=== PATIENT | male | born 1945 | race Asian ===

== ENCOUNTER 2025-09-01 14:57 | Inpatient (IN) ==
--- NOTE | 2025-09-01 15:27 | Emergency Department Note ---
Impression & Plan CHF (congestive heart failure), Elevated troponin I level, Abnormal EKG, Acute hyperkalemia, Acute hyponatremia, DAVID (acute kidney injury), Thrombocytopenia ED Provider Note NAME: NIKKIE BAILEY AGE: 80 SEX: M : 1945 ARRIVES VIA: Walk-In INFORMANT: Patient, the patient's family member ED PROVIDER(S): Marshall Osborne DO CHIEF COMPLAINT: Shortness of breath HPI: The patient is an 80-year-old male who presented to the emergency department for an evaluation of difficulty breathing. The patient's had problems breathing over the course of the last several days. He was seen by cardiology and had outpatient laboratory radiographic studies ordered. He was found to have signs of volume overload on chest x-ray. 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 The patient denies having any chest pain. He denies having any leg swelling or cough. He denies having any recent fever or illness. ROS: See above HPI for pertinent positives & negatives. A total of 10 systems reviewed and were otherwise negative. PAST MEDICAL HISTORY: See Below PAST SURGICAL HISTORY: See Below FAMILY HISTORY: See Below SOCIAL HISTORY: See Below HOME MEDICATIONS: See Below ALLERGIES: See Below VITALS: See Below PHYSICAL EXAMINATION: GENERAL: Patient is awake alert in no acute distress patient is resting comfortably and showing no signs of anxiety EYES: The conjunctivae are clear. The pupils are round and reactive. EARS, NOSE, MOUTH AND THROAT: The nose is without any evidence of any deformity. NECK: The neck is nontender and supple. RESPIRATORY: Diminished breath sounds are noted at both lung bases. There were rales throughout. CARDIOVASCULAR: Regular rate and rhythm noted there no murmurs rubs or gallops normal S1 normal S2. GASTROINTESTINAL: The abdomen is soft. Abdomen is nontender. MUSCULOSKELETAL/EXTREMITIES: There is no evidence of gross deformity full range of motion is noted in the hips and shoulders. SKIN: There is no obvious evidence of any rash. There are no petechiae, pallor or cyanosis noted. NEUROLOGIC: Patient is awake alert and oriented x3 MEDICAL DECISION MAKING: The patient is a 80-year-old male who has a history of CHF who is sent to the emergency department because of weight gain and abnormal labs. The patient had vital signs were reassuring. For this reason further laboratory and radiographic studies were obtained prior to any therapeutic interventions. I discussed the patient's laboratory and radiographic studies with him and his son. The patient was found to have hyponatremia as well as an elevated potassium. He also had an elevated creatinine compared to his baseline. The patient may have volume overload but the chest x-ray was also consistent with possible infiltrate. I discussed the patient's condition with the on-call [facility] hospitalist. I will defer further treatment to their judgment. The patient did not have a cough or fever. Triage Nursing notes reviewed. Prior medical records reviewed Vital Signs: reviewed and remarkable for no significant abnormalities Differential diagnosis: Reactive airway disease, pneumonia, pneumothorax, COPD, CHF, infections, cardiac ischemia, pulmonary embolism, musculoskeletal, gastrointestinal, as well as other pathologies. ER treatment provided: See below Diagnostics interpreted by me: ECG: EKG was obtained in the emergency department. My interpretation is sinus rhythm at 87 bpm. First-degree AV block is noted. LVH was noted by voltage criteria with ST and T wave abnormalities noted in the lateral leads. This was compared to a tracing from March 16, 2025. Some of the changes in the lateral leads are more pronounced otherwise no changes were noted. Cardiac Monitoring: An order was placed for continuous cardiac monitoring. The monitor shows a rate of 88 bpm with sinus rhythm. Laboratory studies: As stated above and show below. Imaging studies: See below. Radiographic imaging was reviewed by myself Consultation(s): I discussed this case with Dr. Elkins who is on for the [facility]. Past Med/Surg History Problem List (Updated 09/01/25 @ 17:03 by Marshall Osborne DO) Thrombocytopenia (Acute) DAVID (acute kidney injury) (Acute) Acute hyponatremia (Acute) Acute hyperkalemia (Acute) Abnormal EKG (Acute) Elevated troponin I level (Acute) CHF (congestive heart failure) (Acute) Dyspnea on exertion Fatigue Heart failure with improved ejection fraction (HFimpEF) Ascites Anemia Pleural effusion Depression BPH (benign prostatic hyperplasia) Hepatic congestion Hyperkalemia Dilated aortic root Mitral regurgitation Pulmonary hypertension RVSP March Cardiomyopathy Cerumen impaction Irregular heart beat Wellness examination Elevated PSA Tremor Health care maintenance Medical History Pericardial effusion Acute HFrEF (heart failure with reduced ejection fraction) Hypertensive emergency Acute respiratory failure with hypoxia Hypertension Constipation Hyponatremia Elevated troponin Renal stone Surgical History Status post Mohs surgery Family History Father Heart disease Hypertension Brother Heart disease Hypertension Denies family history of Ovarian cancer Prostate cancer Diabetes Kidney disease Myocardial infarction Breast cancer Lung cancer Colorectal cancer Stroke Social History Smoking Status: Never smoker Second Hand Exposure: No; Do You Dip or Chew Tobacco: No; Hx Alcohol Use: No Hx Substance Use: No Preferred Language: Maori Communication Ability: Effective Hearing Ability: Use of Hearing Aid Clinical Recruiter Required: No Beliefs That Will Affect Care: None Current Living Situation: Family Current Living Situation Comment: lives with son current occupational status: retired Feels Safe at Home: Yes Seatbelt Use: always Assistive Devices: None Allergies Allergies Allergy/AdvReac Type Severity Reaction Status Date / Time No Known Allergies Allergy Verified 07/01/25 08:49 Home Meds Home Medications Medication Instructions Recorded Confirmed multivitamin 1 tab PO DAILY 09/01/25 09/01/25 Previous Rx's Medication Instructions Recorded dutasteride 0.5 mg capsule 0.5 mg PO DAILY #90 caps 06/17/24 rosuvastatin 10 mg tablet (Crestor) 10 mg PO DAILY #90 tabs 03/18/25 empagliflozin 10 mg tablet 10 mg PO DAILY #90 tabs 04/13/25 (Jardiance) metoprolol succinate 25 mg 25 mg PO QAM 30 days #90 tabs 04/13/25 tablet,extended release 24 hr sacubitril 24 mg-valsartan 26 mg 1 tab PO BID 30 days #180 tabs 04/13/25 tablet (Entresto) docusate sodium 100 mg capsule 100 mg PO BID 90 days #180 caps 04/15/25 tamsulosin 0.4 mg capsule 0.4 mg PO DAILY 90 days #90 caps 04/22/25 furosemide 20 mg tablet 20 mg PO DAILY PRN weight gain, 06/18/25 swelling, SOb #90 tabs pneumo 21-corrie conj-dip crm(PF) 0.5 0.5 ml IM ONCE #0.5 mL 06/22/25 mL IM syringe (Capvaxive) amitriptyline 25 mg tablet 25 mg PO DAILY #90 tabs 07/16/25 linaclotide 145 mcg capsule 145 mcg PO DAILY #30 caps 08/31/25 (Linzess) Results & Data (ED) Vital Signs Vital Signs - 24 hr 09/01/25 14:58 09/01/25 15:08 09/01/25 15:14 Temperature 36.2 C L Temperature Source Temporal Artery Scan Pulse Rate 62 88 Pulse Rate [Apical] Respiratory Rate 17 Respiratory Effort / Characteristics Spontaneous Non-Labored Spontaneous SOB on Exertion Respiratory Depth Normal Respiratory Pattern Regular Blood Pressure 115/63 Blood Pressure [Right Arm] Blood Pressure Mean 80 Blood Pressure Mean [Right Arm] Blood Pressure Position [Right Arm] Pulse Oximetry 97 Oxygen Delivery Method Room Air Room Air Sepsis Recent Fever Within 48 Hours No Sepsis New/Unexplained Change in Mental Status N/A Sepsis Action Taken by Nursing No Action Required 09/01/25 15:14 09/01/25 15:14 09/01/25 15:14 Temperature Temperature Source Pulse Rate 84 Pulse Rate [Apical] 91 H Respiratory Rate 20 17 Respiratory Effort / Characteristics Non-Labored Spontaneous Respiratory Depth Normal Respiratory Pattern Regular Blood Pressure Blood Pressure [Right Arm] 137/87 Blood Pressure Mean Blood Pressure Mean [Right Arm] 103 Blood Pressure Position [Right Arm] Semi-fowlers Pulse Oximetry 92 Oxygen Delivery Method Room Air Room Air Room Air Sepsis Recent Fever Within 48 Hours Sepsis New/Unexplained Change in Mental Status Sepsis Action Taken by Nursing 09/01/25 16:30 Temperature Temperature Source Pulse Rate Pulse Rate [Apical] 83 Respiratory Rate 20 Respiratory Effort / Characteristics Non-Labored Spontaneous Respiratory Depth Normal Respiratory Pattern Regular Blood Pressure Blood Pressure [Right Arm] 138/92 Blood Pressure Mean Blood Pressure Mean [Right Arm] 107 Blood Pressure Position [Right Arm] Semi-fowlers Pulse Oximetry 99 Oxygen Delivery Method Room Air Sepsis Recent Fever Within 48 Hours Sepsis New/Unexplained Change in Mental Status Sepsis Action Taken by Intermediate Medications Current Medication List: was personally reviewed by me Laboratory Data Attestation: I reviewed the patient's lab results. 09/01/25 15:35 09/01/25 17:49 Lab Results 09/01/25 09/01/25 Range/Units 15:35 16:04 WBC 2.31 L (4.8-10.8) K/ul RBC 4.09 L (4.70-6.10) M/uL Hgb 11.7 L (14.0-18.0) g/dL Hct 34.7 L (42.0-52.0) % MCV 84.8 (80.0-100.0) fL MCH 28.6 (25.0-34.0) pg MCHC 33.7 (32.0-36.0) g/dL RDW Std Deviation 49.1 H (36.4-46.3) fL RDW Coeff of Benita 15.9 H (11.5-14.5) % Plt Count 90 L (130-400) K/uL MPV 11.8 (9.4-12.4) fL Immature Gran % (Auto) 0.4 % Neut % (Auto) 74.9 % Lymph % (Auto) 16.0 % [place] % (Auto) 8.7 % Eos % (Auto) 0.0 % Baso % (Auto) 0.0 % Neut # (Auto) 1.73 (1.40-6.50) K/uL Lymph # (Auto) 0.37 L (1.20-3.40) K/uL [place] # (Auto) 0.20 (0.11-0.59) K/uL Eos # (Auto) 0.00 (0.00-0.50) K/uL Baso # (Auto) 0.00 (0.00-0.20) K/uL Immature Gran # (Auto) 0.01 (0.01-0.20) K/uL PT Cancelled INR Cancelled APTT Cancelled PTT Ratio Cancelled VBG pH 7.22 L (7.36-7.41) VBG pCO2 49 (38-50) mmHg VBG pO2 30 mmHg VBG HCO3 20 mmol/L VBG O2 Saturation < 60.0 % VBG Base Excess -7.6 mEq/L Sodium 117 L* (136-145) mmol/L Potassium 5.9 H (3.5-5.1) mmol/L Chloride 87 L (98-107) mmol/L Carbon Dioxide 15 L (21-32) mmol/L Anion Gap 15 H (3-11) BUN 48 H (6-23) mg/dl Creatinine 1.41 H (0.6-1.4) mg/dl Est Cr Clr Drug Dosing 29.1 ml/min eGFR 49.75 BUN/Creatinine Ratio 34.0 H (10-20) Glucose 89 (70-99(Fasting)) mg/dl Osmolality 266 L (280-300) mOsm/kg Lactate 4.6 H* (0.4-2.0) mmol/L Calcium 9.0 (8.6-10.3) mg/dl Magnesium 2.6 H (1.7-2.4) mg/dl Total Bilirubin 1.0 (0.2-1.0) mg/dl AST 247 H (13-39) U/L ALT 153 H (7-52) U/L Alkaline Phosphatase 64 (34-104) U/L Troponin I High Sens 80.7 H* (0-20) pg/ml C-Reactive Protein 1.42 H (0-0.5) mg/dl B-Natriuretic Peptide > 4700 H (0-100) pg/ml Total Protein 6.3 (6.0-8.3) gm/dl Albumin 3.6 (3.4-5.0) gm/dl Globulin 2.7 (2.5-4.0) gm/dl Albumin/Globulin Ratio 1.3 (0.9-2) Procalcitonin 0.13 (0-0.5) ng/ml SARS-CoV-2 (PCR) NEGATIVE (Negative) Influenza Type A (PCR) Negative (Neg) Influenza Type B (PCR) Negative (Neg) RSV (RT-PCR) Negative (Neg) Administered Medications Azithromycin (Azithromycin 250 Mg Tab) [facility] [place] [place] Stop: 09/06/25 17:59 Last Admin: 09/01/25 18:36 Dose: 250 mg Documented By: ALEXANDRA Furosemide (Furosemide Inj 20 Mg/2 Ml Vial) 20 mg IV DAILY [facility] Stop: 10/01/25 17:44 Last Admin: 09/01/25 18:34 Dose: 20 mg Documented By: ALEXANDRA Imaging Data Attestation: I personally reviewed and interpreted this imaging study as follows: My Impression: 1 view chest x-ray was obtained in the emergency department. My interpretation is cardiomegaly with volume overload, right greater than left, final report below. Radiologist's Impression: Chest X-Ray 09/01/25 15:04 XR chest 1V portable HISTORY: 80 years-old Male Dyspnea COMPARISON: Chest radiograph same day at 8:25 AM TECHNIQUE: AP view of the chest FINDINGS: Cardiomegaly with atherosclerosis of the aorta. No pneumothorax. Pulmonary vascular congestion with interstitial coarsening, slightly progressed. Small pleural effusions with bibasilar consolidation, right greater than left. Mildly progressed right basilar opacities. Mild right hemidiaphragmatic elevation. Degenerative changes of the shoulders and spine. IMPRESSION: 1. Cardiomegaly with slightly worsening interstitial pulmonary edema and persistent small pleural effusions. 2. Bibasilar opacities have progressed within the right lung base favoring atelectasis, however as previously mentioned superimposed pneumonia would be difficult to exclude. ACT 112: Negative or not required by law. The above report was generated using voice recognition software. It may contain grammatical, syntax or spelling errors. Electronically signed by: Candido Sigala M.D. 09/01/2025 3:33 PM Discharge Plan Visit Data Chief Complaint: Shortness of Breath/Dyspnea Stated Complaint: SHORTNESS OF BREATH ED Provider: Marshall Osborne Discharge Problem: CHF (congestive heart failure), Elevated troponin I level, Abnormal EKG, Acute hyperkalemia, Acute hyponatremia, DAVID (acute kidney injury), Thrombocytopenia Patient Disposition: Admitted As Inpatient Condition: Fair Discharge Instructions Interventions: ED Discharge Assessment Last Done: 09/01/25 18:53
--- NOTE | 2025-09-01 15:34 | XRay Report ---
XR chest 1V portable HISTORY: 80 years-old Male Dyspnea COMPARISON: Chest radiograph same day at 8:25 AM TECHNIQUE: AP view of the chest FINDINGS: Cardiomegaly with atherosclerosis of the aorta. No pneumothorax. Pulmonary vascular congestion with i nterstitial coarsening, slightly progressed. Small pleural effusions with bibasilar consolidation, ri ght greater than left. Mildly progressed right basilar opacities. Mild right hemidiaphragmatic elevat ion. Degenerative changes of the shoulders and spine. IMPRESSION: 1. Cardiomegaly with slightly worsening interstitial pulmonary edema and persistent small pleural eff usions. 2. Bibasilar opacities have progressed within the right lung base favoring atelectasis, however as pr eviously mentioned superimposed pneumonia would be difficult to exclude. ACT 112: Negative or not required by law. The above report was generated using voice recognition software. It may contain grammatical, syntax o r spelling errors. Electronically signed by: Candido Sigala M.D. 09/01/2025 3:33 PM
[2025-09-01 15:48] LABS: Base Excess VBG -7.6 mEq/L; HCO3 VBG 20 mmol/L; Oxygen Saturation VBG < 60.0 %; PCO2 VBG 49 mmHg (38-50); PO2 VBG 30 mmHg; pH VBG 7.22 (7.36-7.41)
--- NOTE | 2025-09-01 15:53 | Electrocardiogram Report ---
Test Reason : Blood Pressure : */* mmHG Vent. Rate : 87 BPM Atrial Rate : 87 BPM P-R Int : 240 ms QRS Dur : 120 ms QT Int : 406 ms P-R-T Axes : * -41 91 degrees QTcB Int : 488 ms Sinus rhythm with 1st degree A-V block Left axis deviation Minimal voltage criteria for LVH, may be normal variant Septal infarct , age undetermined T wave abnormality, consider lateral ischemia Abnormal ECG When compared with ECG of 16-Mar-2025 11:23, Significant changes have occurred Confirmed by Marshall Tee ([id number]) on 09/01/2025 3:53:18 PM Referred By: Confirmed By: Marshall Tee
[2025-09-01 15:56] LABS: Hematocrit (blood only) 34.7 % (42.0-52.0); Hemoglobin 11.7 g/dL (14.0-18.0); Immature Granulocytes # (auto) 0.01 K/uL (0.01-0.20); Immature Granulocytes % (auto) 0.4 %; Mean Corpuscular Hemoglobin 28.6 pg (25.0-34.0); Mean Corpuscular Volume 84.8 fL (80.0-100.0); Platelet Count 90 K/uL (130-400); RDW Standard Deviation 49.1 fL (36.4-46.3); Red Blood Count 4.09 M/uL (4.70-6.10); White Blood Count 2.31 K/ul (4.8-10.8)
[2025-09-01 16:26] LABS: Influenza A virus by PCR Negative (Neg); Influenza B virus by PCR Negative (Neg); SARS CoV2 RNA(COVID-19) Ceph NEGATIVE (Negative)
[2025-09-01 16:43] LABS: Albumin Level 3.6 gm/dl (3.4-5.0); Anion Gap 15.0 (3-11); Bilirubin,Total 1.0 mg/dl (0.2-1.0); Calcium 9.0 mg/dl (8.6-10.3); Carbon Dioxide 15.0 mmol/L (21-32); Chloride 87.0 mmol/L (98-107); Magnesium 2.6 mg/dl (1.7-2.4); Potassium 5.9 mmol/L (3.5-5.1); Sodium 117.0 mmol/L (136-145)
[2025-09-01 16:45] LABS: Alanine Aminotransferase 153.0 U/L (7-52); Albumin Globulin Ratio 1.3 (0.9-2); Alkaline Phosphatase 64.0 U/L (34-104); Blood Urea Nitrogen 48.0 mg/dl (6-23); Creatinine Clr Calc Pharmacy 29.1 ml/min; Globulin 2.7 gm/dl (2.5-4.0); Glucose 89.0 mg/dl (70-99(Fasting)); Total Protein 6.3 gm/dl (6.0-8.3)
--- NOTE | 2025-09-01 17:29 | History & Physical Report ---
Date of Service September 01, 2025 Assessment & Plan (1) CHF (congestive heart failure): (2) Dyspnea on exertion: (3) Fatigue: (4) Thrombocytopenia: (5) DAVID (acute kidney injury): (6) Acute hyponatremia: (7) Elevated troponin I level: (8) Abnormal EKG: (9) Acute hyperkalemia: Plan Acute on chronic CHF exacerbation CHF protocol orders Continue home medications IV Lasix 20 daily initially as clinically seems to be in mild exacerbation At this time And reassess with repeat sodiums and renal function BNP and TFTs pending Echocardiogram Cardiology consultation (sent in by box gluer) Type II MA in setting of CHF and possible infection EKG nonspecific change Trend troponins until flattened Questionable pneumonia Clinically low suspicion however elevated lactate, leukopenia, acidosis on blood gas raise concern Empirical IV Rocephin azithromycin Check sputum if expectorate Blood cultures NTD Viral respiratory panel Pending Procalcitonin and CRP Monitor leukopenia Anion gap acidosis secondary to infection? Trend lactate Repeat VBG Monitor acidosis Severe asymptomatic hyponatremia, CHF likely contributing Management as above Neurochecks BMP every 4 hours. Avoid overcorrection. If progresses further or becomes symptomatic, Will need hypertonic saline and MICU monitoring Urine studies TFTs, cortisol Nephrology consultation Thrombocytopenia in setting of infection? Monitor. Held off on heparin prophylaxis until this improves DAVID suspect cardiorenal Avoid nephrotoxic meds As above UA and renal US Hyperkalemia suspect in setting of renal insufficiency Lokelma Monitor Transaminitis Suspect congestive in setting of CHF Avoid hepatotoxic meds and monitor Hepatitis panel Liver ultrasound DVT prophylaxis and ambulation with assistance. Add chemoprophylaxis once platelets greater than 100 Full code Disposition admission anticipate at least 48 hours hospitalization. Low threshhold for MICU montioring History of Present Illness Chief Complaint: dyspnea Primary Care Provider: Maya Lind MD 80-year-old male Extensive past medical history CHF diagnosed this past March, Depression BPH pulmonary hypertension tremor Hypertension constipation as well as history listed below who presents with Dyspnea Orthopnea and decreased urine output over the past week. He is prescribed Lasix as needed and recently has not been taking it. He was supposed to see his box gluer today however was redirected to ED for admission for further workup considering worsening dyspnea. No chest pain notable lower extremity swelling nausea lightheadedness fevers chills cough or any other symptoms. No recent illness. Awaiting for home med rec to be completed for resumption of home meds son at bedside. We had an extensive pleasant discussion regarding all aspects of care he was very appreciative. He tells me the patient had similar lab findings when previously admitted for CHF. Son confirms patient is at baseline mentation no confusion or other neurological symptoms Allergies Allergy/AdvReac Type Severity Reaction Status Date / Time No Known Allergies Allergy Verified 07/01/25 08:49 Home Medications Medication Instructions Recorded Confirmed Type dutasteride 0.5 mg capsule 0.5 mg PO DAILY #90 caps 06/17/24 09/01/25 Rx rosuvastatin 10 mg tablet (Crestor) 10 mg PO DAILY #90 tabs 03/18/25 09/01/25 Rx empagliflozin 10 mg tablet 10 mg PO DAILY #90 tabs 04/13/25 09/01/25 Rx (Jardiance) metoprolol succinate 25 mg 25 mg PO QAM 30 days #90 tabs 04/13/25 09/01/25 Rx tablet,extended release 24 hr sacubitril 24 mg-valsartan 26 mg 1 tab PO BID 30 days #180 tabs 04/13/25 09/01/25 Rx tablet (Entresto) docusate sodium 100 mg capsule 100 mg PO BID 90 days #180 caps 04/15/25 09/01/25 Rx tamsulosin 0.4 mg capsule 0.4 mg PO DAILY 90 days #90 caps 04/22/25 09/01/25 Rx furosemide 20 mg tablet 20 mg PO DAILY PRN weight gain, 06/18/25 09/01/25 Rx swelling, SOb #90 tabs pneumo 21-corrie conj-dip crm(PF) 0.5 0.5 ml IM ONCE #0.5 mL 06/22/25 09/01/25 Rx mL IM syringe (Capvaxive) amitriptyline 25 mg tablet 25 mg PO DAILY #90 tabs 07/16/25 09/01/25 Rx linaclotide 145 mcg capsule 145 mcg PO DAILY #30 caps 08/31/25 09/01/25 Rx (Linzess) multivitamin 1 tab PO DAILY 09/01/25 09/01/25 History Past Med/Surg History Problem List (Updated 09/01/25 @ 17:03 by Marshall Osborne DO) Thrombocytopenia (Acute) DAVID (acute kidney injury) (Acute) Acute hyponatremia (Acute) Acute hyperkalemia (Acute) Abnormal EKG (Acute) Elevated troponin I level (Acute) CHF (congestive heart failure) (Acute) Dyspnea on exertion Fatigue Heart failure with improved ejection fraction (HFimpEF) Ascites Anemia Pleural effusion Depression BPH (benign prostatic hyperplasia) Hepatic congestion Hyperkalemia Dilated aortic root Mitral regurgitation Pulmonary hypertension RVSP March Cardiomyopathy Cerumen impaction Irregular heart beat Wellness examination Elevated PSA Tremor Health care maintenance Medical History Pericardial effusion Acute HFrEF (heart failure with reduced ejection fraction) Hypertensive emergency Acute respiratory failure with hypoxia Hypertension Constipation Hyponatremia Elevated troponin Renal stone Surgical History Status post Mohs surgery Family History Father Heart disease Hypertension Brother Heart disease Hypertension Denies family history of Ovarian cancer Prostate cancer Diabetes Kidney disease Myocardial infarction Breast cancer Lung cancer Colorectal cancer Stroke Social History Smoking Status: Never smoker Second Hand Exposure: No; Do You Dip or Chew Tobacco: No; Hx Alcohol Use: No Hx Substance Use: No Preferred Language: Turkish Communication Ability: Effective Hearing Ability: Use of Hearing Aid Mangle Roller Required: No Beliefs That Will Affect Care: None Current Living Situation: Family Current Living Situation Comment: lives with son current occupational status: retired Feels Safe at Home: Yes Seatbelt Use: always Assistive Devices: None Review of Systems Review of Systems: negative except as in hpi Physical Exam Physical Exam: GENERAL: Patient is awake alert in no acute distress patient is resting comfortably and showing no signs of anxiety EYES: The conjunctivae are clear. The pupils are round and reactive. EARS, NOSE, MOUTH AND THROAT: The nose is without any evidence of any deformity. NECK: The neck is nontender and supple. RESPIRATORY: Diminished breath sounds are noted at both lung bases. There were rales throughout. CARDIOVASCULAR: Regular rate and rhythm noted there no murmurs rubs or gallops normal S1 normal S2. GASTROINTESTINAL: The abdomen is soft. Abdomen is nontender. MUSCULOSKELETAL/EXTREMITIES: There is no evidence of gross deformity full range of motion is noted in the hips and shoulders. SKIN: There is no obvious evidence of any rash. There are no petechiae, pallor or cyanosis noted. trace edema of feet. NEUROLOGIC: Patient is awake alert and oriented x3 Results & Data Results & Data Vital Signs (Past 12 Hours) Vital Signs Temp Pulse Pulse Resp BP BP Pulse Ox 09/01/25 16:30 83 20 138/92 99 09/01/25 15:14 84 17 92 09/01/25 15:14 91 H 20 137/87 09/01/25 15:14 09/01/25 15:14 09/01/25 15:08 88 09/01/25 14:58 36.2 C L 62 17 115/63 97 O2 Del Method 09/01/25 16:30 Room Air 09/01/25 15:14 Room Air 09/01/25 15:14 Room Air 09/01/25 15:14 Room Air 09/01/25 15:14 Room Air 09/01/25 15:08 09/01/25 14:58 Room Air PG Care Time/CCT Total # of Minutes Spent Total Time Spent with Patient: Total time spent is greater than 50% in coordination of care (as documented) at patient's floor/unit and/or counseling patient: Coding Level of Care Code 56101 INT INP/OBS CARE 2/55MIN Diagnoses CHF (congestive heart failure) I50.9 Dyspnea on exertion R06.09 Fatigue R53.83 Thrombocytopenia D69.6 DAVID (acute kidney injury) N17.9 Acute hyponatremia E87.1 Elevated troponin I level R79.89 Abnormal EKG R94.31 Acute hyperkalemia E87.5
[2025-09-01] MEDS: FUROSEMIDE INJ 20 MG/2 ML VIAL IV SCH (18:34)
[2025-09-01] MEDS: AZITHROMYCIN 250 MG TAB PO SCH (18:36)
[2025-09-01 18:39] LABS: Anion Gap 13.0 (3-11); Blood Urea Nitrogen 50.0 mg/dl (6-23); Calcium 8.9 mg/dl (8.6-10.3); Carbon Dioxide 20.0 mmol/L (21-32); Chloride 87.0 mmol/L (98-107); Creatinine Clr Calc Pharmacy 27.9 ml/min; Glucose 90.0 mg/dl (70-99(Fasting)); INR 1.6 (0.9-1.1); Partial Thromboplastin Time 33 Seconds (21-31); Potassium 6.1 mmol/L (3.5-5.1); Prothrombin Time 16.1 Seconds (9.0-12.0); Sodium 120.0 mmol/L (136-145)
[2025-09-01] MEDS ORDERED: MAGNESIUM HYDROXIDE SUSP 30 ML UDC PO PRN (19:16)
[2025-09-01] MEDS ORDERED: MELATONIN 3 MG TAB PO PRN (19:16)
[2025-09-01] MEDS ORDERED: ONDANSETRON INJ 2 MG/ML 2 ML VIAL IV PRN (19:16)
[2025-09-01] MEDS: cefTRIAXone SODIUM 1,000 MG/50 ML BAG IV SCH (19:59)
[2025-09-01] MEDS: DOCUSATE SODIUM 100 MG CAP PO SCH (20:01)
[2025-09-01 20:03] LABS: Base Excess VBG -6.2 mEq/L; HCO3 VBG 20 mmol/L; Oxygen Saturation VBG < 60.0 %; PCO2 VBG 39 mmHg (38-50); PO2 VBG 20 mmHg; pH VBG 7.31 (7.36-7.41)
[2025-09-01 20:08] LABS: Hematocrit (blood only) 32.3 % (42.0-52.0); Hemoglobin 11.2 g/dL (14.0-18.0); Mean Corpuscular Hemoglobin 28.9 pg (25.0-34.0); Mean Corpuscular Volume 83.5 fL (80.0-100.0); Platelet Count 84 K/uL (130-400); RDW Standard Deviation 47.9 fL (36.4-46.3); Red Blood Count 3.87 M/uL (4.70-6.10); White Blood Count 2.42 K/ul (4.8-10.8)
[2025-09-01 20:52] LABS: Alanine Aminotransferase 243.0 U/L (7-52); Albumin Globulin Ratio 1.4 (0.9-2); Albumin Level 3.6 gm/dl (3.4-5.0); Alkaline Phosphatase 65.0 U/L (34-104); Anion Gap 13.0 (3-11); Bilirubin,Total 1.1 mg/dl (0.2-1.0); Blood Urea Nitrogen 51.0 mg/dl (6-23); Calcium 9.1 mg/dl (8.6-10.3); Carbon Dioxide 19.0 mmol/L (21-32); Chloride 86.0 mmol/L (98-107); Creatinine Clr Calc Pharmacy 26.9 ml/min; Globulin 2.6 gm/dl (2.5-4.0); Glucose 94.0 mg/dl (70-99(Fasting)); Potassium 6.1 mmol/L (3.5-5.1); Sodium 118.0 mmol/L (136-145); Thyroid Stimulating Hormone 7.671 uIu/ml (0.300-4.500); Total Protein 6.2 gm/dl (6.0-8.3)
[2025-09-01 20:54] LABS: Hep B Surface Ag with confirm Negative (Negative)
[2025-09-01 20:59] LABS: Hep C Ab Rflx HepCQuant RNA Negative (Negative)
[2025-09-01] MEDS: cefTRIAXone SODIUM 500 MG in DEXTROSE 5% 50 ML IV STA (22:34)
[2025-09-01 22:37] LABS: Appearance Urine Clear (Clear); Bacteria Urine Automated None Seen (None Seen); Epithelial Cell Urine Auto 0-2 /hpf (0-2); Glucose Urine UA 3+ (Negative); RBC Urine Automated >20 /hpf (0-2); WBC Urine Automated 0-5 /hpf (0-5)
[2025-09-01] MEDS ORDERED: INSULIN PROTOCOL GOAL RANGE ONE (22:46)
[2025-09-01] MEDS ORDERED: STAT IV Infusion **Titration per Protocol STA ×4 (22:46→23:47)
[2025-09-01] MEDS ORDERED: INSULIN REGULAR 250 UNITS in SODIUM CHLORIDE 0.9% 247.5 ML IV SCH (23:00)
[2025-09-01] MEDS: INSULIN HUMAN REGULAR PER UNIT 10 UNITS in SYRINGE 9.9 ML IV STA (23:02)
[2025-09-01] MEDS: CALCIUM GLUCONATE 1,000 MG/60 ML BAG IV STA (23:03)
[2025-09-01] MEDS: DEXTROSE 50% 50 ML SYRINGE IV STA (23:04)
[2025-09-01] MEDS ORDERED: RAPID SEQUENCE INDUCTION BAG ONE (23:13)
[2025-09-01] MEDS ORDERED: ESMOLOL BOLUS FROM BAG IV ONE (23:17)
[2025-09-01] MEDS ORDERED: CALCIUM CHLORIDE 10% 10 ML SYR IV ONE (23:20)
[2025-09-01] MEDS ORDERED: ESMOLOL HCL INJ 10 MG/ML 10ML VIAL IV STA ×2 (23:24)
[2025-09-01] MEDS ORDERED: CALCIUM GLUCONATE 10% 1,000 MG in NS X2 BAGS IV SCH (23:30)
--- NOTE | 2025-09-01 23:39 | Emergency Department Note ---
ED Visit Note CODE BLUE note The patient is an 80-year-old male that I cared for the emergency department earlier. He was diagnosed with possible pneumonia as well as DAVID and hyperkalemia. The patient did receive medication for hyperkalemia in the emergency department but because of his fluid status and history of CHF other treatment was deferred at that time. On the floor the patient started having episodes of wide-complex tachycardia. Initially he was a code purple. The patient received proper medications for this code purple but then he went into a CODE BLUE situation. The patient lost pulses and went into a wide-complex tachycardia. When I arrived on the floor ACLS was being performed. The patient had a second IV placed by myself in the right external jugular vein. He received fluids magnesium calcium epinephrine amiodarone and bicarbonate. The patient was not managing his airway well. He was defibrillated multiple times. Decision was made to intubate the patient. Endotracheal Intubation Indication cardiac arrest. The patient was on 100% oxygen via NRB prior to the procedure. Suction, airway equipment, RSI drugs, respiratory equipment, and appropriate personnel were prepared prior to the initiation of the procedure. A time out was taken. Induction was performed with ketamine 100 mg. After observing the clinical benefit of the medications, the airway was easily visualized utilizing a glide scope. A 7.5 size ETT tube was placed atraumatically to 24 cm using standard technique. The cuff inflated without signs of malfunction. There were bilateral breath sounds, positive colormetric change, no gastric sounds, a good capnography waveform, and post procedure pulse oximetry was 88%. There were no complications. Post intubation chest x-ray is pending. The patient did have return of pulses. Pressors were hung. The patient was transferred to the ICU. The admitting team was at the bedside. .
[2025-09-01 23:47] LABS: Anion Gap 16.0 (3-11); Blood Urea Nitrogen 51.0 mg/dl (6-23); Calcium 8.6 mg/dl (8.6-10.3); Carbon Dioxide 16.0 mmol/L (21-32); Chloride 86.0 mmol/L (98-107); Creatinine Clr Calc Pharmacy 25.4 ml/min; Glucose 79.0 mg/dl (70-99(Fasting)); Potassium 6.2 mmol/L (3.5-5.1); Sodium 118.0 mmol/L (136-145)
[2025-09-01] MEDS ORDERED: PROPOFOL BOLUS FROM BAG IV PRN (23:47)
[2025-09-02] MEDS: NOREPINEPHRINE/D5W 4 MG/250 ML PLCT IV SCH (00:06)
[2025-09-02] MEDS: INSULIN HUMAN REGULAR PER UNIT 10 UNITS in SYRINGE 9.9 ML IV STA (00:06)
[2025-09-02] MEDS: DEXTROSE 50% 50 ML SYRINGE IV STA (00:07)
[2025-09-02] MEDS: fentaNYL citrate 2,500 MCG/250 ML BAG IV SCH (00:11)
[2025-09-02] MEDS ORDERED: ONDANSETRON INJ 2 MG/ML 2 ML VIAL IV PRN (00:30)
[2025-09-02] MEDS ORDERED: LORazepam Inj 0.5 MG in SYRINGE 0.25 ML IV PRN (00:30)
[2025-09-02] MEDS ORDERED: GLYCOPYRROLATE 0.2 MG/ML VIAL IV PRN (00:39)
[2025-09-02] MEDS: GLYCOPYRROLATE 0.2 MG/ML VIAL ONE (00:49)
--- NOTE | 2025-09-02 01:30 | XRay Report ---
EXAM: XR chest 1V portable CLINICAL HISTORY: Norma ETT after withdrawal TECHNIQUE: Two X-ray images of the chest are obtained in AP projection, performed 5 minutes apart. COMPARISON: Prior CT of the chest on 06/18/2025. FINDINGS: The initial radiograph demonstrated the endotracheal tube positioned within the right main bronchus. A follow-up radiograph obtained 5 minutes later shows the distal tip of the tube approximately 2.5 cm above the nile, which is acceptable; however, further withdrawal by an additional 1.5 cm is recommended for optimal positioning. Pulmonary Parenchyma: Mildly prominent vascular markings reflecting congestion (slightly increased). Obliteration of the left costophrenic recess suggests mild pleural effusion (mildly increased). No evidence of consolidation, collapse, or focal opacities. Heart and Mediastinum: Cardiomegaly is noted. Although comparison with the prior CT is limited, comparison with the radiograph dated 03/17/2025 demonstrates a progressive increase in the size of the cardiac silhouette, which may be secondary to pericardial effusion. Clinical correlation is recommended. No mediastinal widening or masses. No hilar or mediastinal lymphadenopathy. Bony Thorax: The bony thorax appears intact without fractures or deformities. Soft Tissues: Soft tissues overlying the chest wall are unremarkable. Overlying monitoring leads are seen. IMPRESSION: 1. The initial radiograph demonstrated the endotracheal tube positioned within the right main bronchus. A follow-up radiograph obtained 5 minutes later shows the distal tip of the tube approximately 2.5 cm above the nile, which is acceptable; however, further withdrawal by an additional 1.5 cm is recommended for optimal positioning. 2. Mildly prominent vascular markings reflecting congestion (slightly increased). 3. Obliteration of the left costophrenic recess suggests mild pleural effusion (mildly increased). 4. Cardiomegaly is noted. Although comparison with the prior CT is limited, comparison with the radiograph dated 03/17/2025 demonstrates a progressive increase in the size of the cardiac silhouette, which may be secondary to pericardial effusion. 5. Clinical correlation is recommended. Electronically signed by Berny Blair 09-02-2025 01:29 AM
--- NOTE | 2025-09-02 01:37 | Death Pronouncement Note ---
Date of Service September 02, 2025 Pronouncement Note Admission Date September 01, 2025 Date and Time of Date of : 09/02/25 Time of : 01:15 Preliminary Cause of (1) Cardiac arrest: (2) Ventricular tachycardia: (3) Hyperkalemia: (4) Cardiorenal syndrome: Summary Code Purple called - patient with ventricular tachycardia, sustained. Largely asymptomatic Orders placed for treatment of hyperkalemia with calcium gluconate, insulin and dextrose Code Blue called - patient in ventricular tachycardia Please see Code note for further details of cardiac arrest ROSC obtained and patient transferred to MICU Discussion with son and [id number] at bedside - wish patient to be DNR should he have another arrest. Then opted for comfort measures Patient extubated Examined at bedside, absence of spontaneous heart tones, respirations or pulse No withdrawal from painful stimuli Pupils fixed and dilated bilaterally with absent corneal reflex Patient pronounced deat at 01:15 Secondary to cardiac arrest, secondary to ventricular tachycardia, secondary to hyperkalemia secondary to cardio-renal failure Family at bedside. Additional Data Confirmation of : no pulse, no respirations, no heart sounds and pupils fixed and dilated Family: at bedside Attending physician: Adriana Elkins MD Was code activated?: Yes architectural examiner notified?: Yes Organ bank notified?: Yes Coding Level of Care Code 95343 INP/OBS DISCH >30 MIN Diagnoses Cardiac arrest I46.9 Ventricular tachycardia I47.20 Hyperkalemia E87.5 Cardiorenal syndrome I13.10
--- NOTE | 2025-09-02 01:38 | Procedure Note ---
Procedure Note Date of Service September 02, 2025 RIGHT FEMORAL ARTERIAL LINE PROCEDURE NOTE: Procedure: Arterial Line Placement Attending: Dr. Ramu Ramos DO APC: ALEK Elizabeth Indication: Monitoring on Pressors/Frequent labs Anesthesia:Lidocaine 1% Emergency Consent Implied. A time-out was completed verifying correct patient, procedure, site, positioning, and implant(s) or special equipment if applicable. Patients right groin was prepped and draped in the usual sterile fashion. Ultrasound guidance was used to aid needle placement. A 20g needle was introduced into the right femoral artery. A flash of blood was achieved and upon removal of syringe pulsatile blood flow was noted. A guide wire was inserted into the needle using the Seldinger technique. The needle was removed. A catheter was threaded over the wire, and the guidewire was removed with appropriate blood return. Good w aveform was observed. The patient tolerated the procedure well. Confirmation of placement with ultrasound. Images saved to medical record. Blood Loss: Minimal Complications: None Procedural Ultrasound Guidance: Procedure Date: 09/02/2025 Indication: Ultrasound guidance for right femoral arterial line placement Attending: Dr. Ramu Ramos DO APC: Bola GASTON Artery Identified: YES Line confirmed in Artery with ultrasound: Yes Complications: NONE Patient tolerated procedure: WELL [facility] Procedure Codes (Charges) Tubes, Drains, and Vasc Access Procedure 1: Tubes, Drains, and Vasc Access: [id number] Arterial Cath/Cannulation Sampling/Monitoring/Transfusion Procedure 2: Tubes, Drains, and Vasc Access: [id number] Ultrasound Guidance For Vascular Coding CPT Codes Tubes, Drains, and Vasc Access - Tubes, Drains, and Vasc Access: [id number] Arterial Cath/Cannulation Sampling/Monitoring/Transfusion ([id number]) Tubes, Drains, and Vasc Access - Tubes, Drains, and Vasc Access: [id number] Ultraso und Guidance For Vascular ([id number]) Additional Codes Date of Service ([email or web address])
[2025-09-02 01:40] VITALS: RESP 0; TEMP 92.7; O2SAT 76
--- NOTE | 2025-09-02 01:41 | Discharge Summary ---
Discharge Summary Date of Service September 02, 2025 Principal Dx & Hospital Course #1 = Principal Diagnosis (1) Cardiac arrest: (2) Ventricular tachycardia: (3) Hyperkalemia: (4) Cardiorenal syndrome: Plan Patient with Code Blue secondary to Ventricular Tachycardia. Please see additional documentation for details of Code. ROSC obtained and patient transferred to MICU room 107 Family at bedside and opted for DNR should patient arrest again. Upon further discussion they opted for comfort measures with terminal extubation Patient on 09/02/2025 at 01:15 Discharge Plan Discharge Items Patient Disposition: Other Date/Time: 09/02/25 01:15 Hospital Stay Data Consultations 09/01/25 16:53 ED Decision to Admit Stat Diagnostic Imagining Performed 09/01/25 17:38 US liver Urgent 09/01/25 19:16 US renal/blad retro comp Urgent Total Time Total Time Spent Total Time Spent (In Minutes): 30 Coding Level of Care Code None Diagnoses Cardiac arrest I46.9 Ventricular tachycardia I47.20 Hyperkalemia E87.5 Cardiorenal syndrome I13.10
--- NOTE | 2025-09-02 01:43 | Critical Care Consultation ---
Date of Consultation September 02, 2025 Assessment & Plan (1) Cardiorenal syndrome: (2) Ventricular tachycardia: (3) Cardiac arrest: (4) Thrombocytopenia: (5) DAVID (acute kidney injury): (6) Acute hyponatremia: (7) Acute hyperkalemia: (8) Pulmonary hypertension: (9) Hypothermia: Plan Marie Gonsalez is an 80-year-old male with past medical history of HTN, HLD, BPH, HFimpEF, and pulmonary hypertension w/ RVSP 63 in March 2025; who presented to [facility] ED on 11/12/2024 with difficulty breathing. EKG showed no ischemic changes. Chest x-ray showed cardiomegaly with slightly worsening interstitial pulmonary edema, persistent small pleural effusions, and bibasilar opacities. VTACH arrest refractory to antiarrhythmic and defibrillations. ROSC achieved. Neuro: Sedation & Analgesia -Start Fent gtt CV: VTACH arrest s/p ROSC; Shock -Difficult to break. Refractory to amio and multiple defibrillations. Esmolol ordered but not given as rhythm devolved into PEA. -TTE ordered -Cont levophed gtt Heart failure exacerbation -BNP >4700 -Given lasix Pulm: Acute hypoxic respiratory failure -On vent. CXR right mainstem pulled back 4cm. -Compassionately extubated to comfort care. GI: -NPO -Will place OG tube : DAVID; Hyperkalemia -Given insulin and dextrose x 2. Gave 4 grams calcium. -Cont Lokelma Heme: -Hgb 11.2/Hct 32.3 -Monitor Endo: -TSH 7.67 -Cortisol > 60 ID: Leukopenia; concern for community acquired pneumonia -Started on AZT and CTX -Procal 0.14 -Hypothermic on assessment down to 34.2 degrees. -Monitor Disposition: ICU for continued evaluation and management of VTACH arrest with ROSC requiring mechanical ventilation and vasoactive agents with high risk for /decline. Patient is DNR. Family updated by ICU provider on 09/02/25. Patient periarrest in ICU. Son at bedside and asked ICU provider to make his father comfortable. Patient compassionately extubated. Patient pronounced at 0115. I have personally spent 50 minutes of critical care time in the direct management of this patient. This is a life/limb threatening event. This includes time spent evaluating patient, direct bedside care, chart review, placing orders, interpretation of diagnostic studies, discussion with consultants, patient, and family members, as well as other required patient management activities. This time is exclusive of all separately billable procedures, and teaching time and separate from and in addition to any other critical care service time. History of Present Illness Attending Physician: Adriana Elkins MD History of Present Illness Marie Gonsalez is an 80-year-old male with past medical history of HTN, HLD, BPH, HFimpEF, and pulmonary hypertension w/ RVSP 63 in March 2025; who presented to [facility] ED on 11/12/2024 with difficulty breathing. Patient had been evaluated by cardiology earlier in the day. CXR showed volume overload and it was recommend that the patient come to the ED for further evaluation. Patient denied chest pain at the time. EKG showed no ischemic changes. Chest x-ray showed cardiomegaly with slightly worsening interstitial pulmonary edema, persistent small pleural effusions, and bibasilar opacities. Labs revealed Na of 120, K 5.7, lactic of 4.6, and BNP of >4700. Procal 0.14. Patient was started on ceftriaxone and azithromycin for CAP. Given Lokelma for hyperkalemia and Lasix for hear failure. Patient was admitted to the Hospitalist service for continued evaluation and management. At 2230 Code purple called. Patient noted to be in VTACH but asymptomatic. VTACH aborted spontaneously. Labs showed K 6.1. 2 grams of calcium given, 10 units of regular insulin, and an amp of bicarb. Patient monitored by Hospitalist. At 2300 Code Blue called. Patient found to be in pulseless VTACH. CPR started and defibrillator immediately charged to 200 joules with shock delivered with in seconds of onset. CPR resumed. calcium and bicarbonate given. Amiodarone 300mg given. ACLS continued but VTACH persisted despite antiarrhythmic and multiple defibrillations. Patient rhythm devolved into PEA. Discussed with patient's son current status and concern for prolonged downtime and likelihood of poor outcome even if ROSC achieved. Son asked to stop CPR. Upon cessation of CPR patient note to have organized rhythm with palpable pulse. Discussed with son who wanted to make his father DNR going forward. Patient taken to ICU where a right femoral art line was placed. Patient noted to becoming hypotensive levophed gtt started. Patient noted to have progressive bradycardia with etco2 of 15. 0.5mg of epi given by ICU provider. Son at bedside as epi was being administered and asked to make his father comfortable and allow him pass naturally. Patient compassionately extubated and comfort measures provided. Patient at 114 he rest in peace. Allergies Allergy/AdvReac Type Severity Reaction Status Date / Time No Known Allergies Allergy Verified 07/01/25 08:49 Home Medications Medication Instructions Recorded Confirmed Type dutasteride 0.5 mg capsule 0.5 mg PO DAILY #90 caps 06/17/24 09/01/25 Rx rosuvastatin 10 mg tablet (Crestor) 10 mg PO DAILY #90 tabs 03/18/25 09/01/25 Rx empagliflozin 10 mg tablet 10 mg PO DAILY #90 tabs 04/13/25 09/01/25 Rx (Jardiance) metoprolol succinate 25 mg 25 mg PO QAM 30 days #90 tabs 04/13/25 09/01/25 Rx tablet,extended release 24 hr sacubitril 24 mg-valsartan 26 mg 1 tab PO BID 30 days #180 tabs 04/13/25 09/01/25 Rx tablet (Entresto) docusate sodium 100 mg capsule 100 mg PO BID 90 days #180 caps 04/15/25 09/01/25 Rx furosemide 20 mg tablet 20 mg PO DAILY PRN weight gain, 06/18/25 09/01/25 Rx swelling, SOb #90 tabs pneumo 21-corrie conj-dip crm(PF) 0.5 0.5 ml IM ONCE #0.5 mL 06/22/25 09/01/25 Rx mL IM syringe (Capvaxive) amitriptyline 25 mg tablet 25 mg PO DAILY #90 tabs 07/16/25 09/01/25 Rx linaclotide 145 mcg capsule 145 mcg PO DAILY #30 caps 08/31/25 09/01/25 Rx (Linzess) multivitamin 1 tab PO DAILY 09/01/25 09/01/25 History tamsulosin 0.4 mg capsule 0.4 mg PO HS 09/01/25 09/01/25 History Patient History Medical History Pericardial effusion Acute HFrEF (heart failure with reduced ejection fraction) Hypertensive emergency Acute respiratory failure with hypoxia Hypertension Constipation Hyponatremia Elevated troponin Renal stone Surgical History Status post Mohs surgery Family History Father Heart disease Hypertension Brother Heart disease Hypertension Denies family history of Ovarian cancer Prostate cancer Diabetes Kidney disease Myocardial infarction Breast cancer Lung cancer Colorectal cancer Stroke Social History Smoking Status: Never smoker Second Hand Exposure: No; Do You Dip or Chew Tobacco: No; Tobacco Cessation Education Requested by Patient: No Hx Alcohol Use: No Hx Substance Use: No Preferred Language: Sudarshan Communication Ability: Impaired Communication Ability Comment: Son at BS Hearing Ability: Use of Hearing Aid 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 WEIGHT/BMI reviewed. GEN: Ill appearing, well-developed, NAD. PSYCH: Unable to assess. HEENT -Head: NC/AT; -Eyes: PERRL, EOMI. No discharge or redn ess; -Ears: External ears are normal. -Nose: Normal nares. NECK: Supple, with no masses. CV: Post ROSC in SR. no m/r/g. LUNGS: Lungs clear in bilateral upper and lower lobes. ABD: Soft, ND, hypoactive bowel sounds, no masses or organomegaly. : [place] draining bloody urine SKIN: Warm, well perfused. No skin rashes or abnormal lesions. MSK: No deformities, Normal gait. EXT: No clubbing, cyanosis, or edema. NEURO: No purposeful movement, 0/5 all extremities, no eye opening, pupils 4mm and sluggish. Results & Data Results & Data Vital Signs (Past 12 Hours) Vital Signs Temp Pulse Pulse Resp BP BP Pulse Ox 09/01/25 23:36 25 H 09/01/25 20:49 34.5 C L 09/01/25 19:55 83 09/01/25 19:53 34.6 C L 09/01/25 19:16 34.6 C L 84 20 132/84 09/01/25 19:05 09/01/25 19:05 34.6 C L 84 20 132/84 09/01/25 18:32 36.3 C L 83 20 132/85 92 09/01/25 18:00 85 18 116/81 92 09/01/25 16:30 83 20 138/92 99 09/01/25 15:14 84 17 92 09/01/25 15:14 91 H 20 137/87 09/01/25 15:14 09/01/25 15:14 09/01/25 15:08 88 09/01/25 14:58 36.2 C L 62 17 115/63 97 O2 Del Method FiO2 09/01/25 23:36 100 09/01/25 20:49 09/01/25 19:55 09/01/25 19:53 09/01/25 19:16 Room Air 09/01/25 19:05 Room Air 09/01/25 19:05 09/01/25 18:32 Room Air 09/01/25 18:00 Room Air 09/01/25 16:30 Room Air 09/01/25 15:14 Room Air 09/01/25 15:14 Room Air 09/01/25 15:14 Room Air 09/01/25 15:14 Room Air 09/01/25 15:08 09/01/25 14:58 Room Air Critical Care Results & Data Vital Signs (Past 12 Hours) Vital Signs Temp Pulse Pulse Resp BP BP Pulse Ox 09/01/25 23:36 25 H 09/01/25 20:49 34.5 C L 09/01/25 19:55 83 09/01/25 19:53 34.6 C L 09/01/25 19:16 34.6 C L 84 20 132/84 09/01/25 19:05 09/01/25 19:05 34.6 C L 84 20 132/84 09/01/25 18:32 36.3 C L 83 20 132/85 92 09/01/25 18:00 85 18 116/81 92 09/01/25 16:30 83 20 138/92 99 09/01/25 15:14 84 17 92 09/01/25 15:14 91 H 20 137/87 09/01/25 15:14 09/01/25 15:14 09/01/25 15:08 88 09/01/25 14:58 36.2 C L 62 17 115/63 97 O2 Del Method FiO2 09/01/25 23:36 100 09/01/25 20:49 09/01/25 19:55 09/01/25 19:53 09/01/25 19:16 Room Air 09/01/25 19:05 Room Air 09/01/25 19:05 09/01/25 18:32 Room Air 09/01/25 18:00 Room Air 09/01/25 16:30 Room Air 09/01/25 15:14 Room Air 09/01/25 15:14 Room Air 09/01/25 15:14 Room Air 09/01/25 15:14 Room Air 09/01/25 15:08 09/01/25 14:58 Room Air Lab & Micro Results (Past 24 Hours) RBC 3.87 M/uL (4.70-6.10) L 09/01/25 WBC 2.42 K/ul (4.8-10.8) L 09/01/25 Hgb 11.2 g/dL (14.0-18.0) L 09/01/25 Hct 32.3 % (42.0-52.0) L 09/01/25 MCV 83.5 fL (80.0-100.0) 09/01/25 MCH 28.9 pg (25.0-34.0) 09/01/25 MCHC 34.7 g/dL (32.0-36.0) 09/01/25 RDW Standard Deviation 47.9 fL (36.4-46.3) H 09/01/25 RDW Coefficient of Variation 15.9 % (11.5-14.5) H 09/01/25 Plt Count 84 K/uL (130-400) L 09/01/25 MPV 11.8 fL (9.4-12.4) 09/01/25 Neutrophils (%) (Auto) 74.9 % 09/01/25 Lymphocytes (%) (Auto) 16.0 % 09/01/25 Monocytes # (Auto) 0.20 K/uL (0.11-0.59) 09/01/25 Eosinophils # (Auto) 0.00 K/uL (0.00-0.50) 09/01/25 Immature Granulocyte % (Auto) 0.4 % 09/01/25 Neutrophils # (Auto) 1.73 K/uL (1.40-6.50) 09/01/25 Lymphocytes # (Auto) 0.37 K/uL (1.20-3.40) L 09/01/25 Monocytes # (Auto) 0.20 K/uL (0.11-0.59) 09/01/25 Eosinophils # (Auto) 0.00 K/uL (0.00-0.50) 09/01/25 Basophils # (Auto) 0.00 K/uL (0.00-0.20) 09/01/25 Immature Granulocyte # (Auto) 0.01 K/uL (0.01-0.20) 5 Na 118 mmol/L (136-145) L* 09/01/25 K 6.2 mmol/L (3.5-5.1) H* 09/01/25 Cl 86 mmol/L (98-107) L 09/01/25 CO2 16 mmol/L (21-32) L 09/01/25 Anion Gap 16 (3-11) H 09/01/25 BUN 51 mg/dl (6-23) H 09/01/25 Creatinine 1.59 mg/dl (0.6-1.4) H 09/01/25 BUN/Creatinine Ratio 32.1 (10-20) H 09/01/25 Glu 79 mg/dl (70-99(Fasting)) 09/01/25 Ca 8.6 mg/dl (8.6-10.3) 09/01/25 Total Bilirubin 1.1 mg/dl (0.2-1.0) H 09/01/25 AST 369 U/L (13-39) H 09/01/25 ALT 243 U/L (7-52) H 09/01/25 Alkaline Phosphatase 65 U/L (34-104) 09/01/25 TP 6.2 gm/dl (6.0-8.3) 09/01/25 Albumin 3.6 gm/dl (3.4-5.0) 09/01/25 Globulin 2.6 gm/dl (2.5-4.0) 09/01/25 Albumin/Globulin Ratio 1.4 (0.9-2) 09/01/25 Mg 2.6 mg/dl (1.7-2.4) H 09/01/25 15:35 Calcium Level 8.6 mg/dl (8.6-10.3) 09/01/25 22:59 Prothromb Time International Ratio 1.6 (0.9-1.1) H 09/01/25 17 :49 Venous Blood pH 7.31 (7.36-7.41) L 09/01/25 19:41 Venous Blood Partial Pressure CO2 39 mmHg (38-50) 09/01/25 19:4 1 Venous Blood Partial Pressure O2 20 mmHg 09/01/25 19:41 Venous Blood HCO3 20 mmol/L 09/01/25 19:41 Venous Blood Base Excess -6.2 mEq/L 09/01/25 19:41 Venous Blood Oxygen Saturation < 60.0 % 09/01/25 19:41 Diagnostic Findings (Past 24 Hours) Chest X-Ray 09/01/25 15:04 XR chest 1V portable HISTORY: 80 years-old Male Dyspnea COMPARISON: Chest radiograph same day at 8:25 AM TECHNIQUE: AP view of the chest FINDINGS: Cardiomegaly with atherosclerosis of the aorta. No pneumothorax. Pulmonary vascular congestion with interstitial coarsening, slightly progressed. Small pleural effusions with bibasilar consolidation, right greater than left. Mildly progressed right basilar opacities. Mild right hemidiaphragmatic elevation. Degenerative changes of the shoulders and spine. IMPRESSION: 1. Cardiomegaly with slightly worsening interstitial pulmonary edema and persistent small pleural effusions. 2. Bibasilar opacities have progressed within the right lung base favoring atelectasis, however as previously mentioned superimposed pneumonia would be difficult to exclude. ACT 112: Negative or not required by law. The above report was generated using voice recognition software. It may contain grammatical, syntax or spelling errors. Electronically signed by: Candido Sigala M.D. 09/01/2025 3:33 PM Chest X-Ray 09/02/25 00:07 EXAM: XR chest 1V portable CLINICAL HISTORY: Norma ETT after withdrawal TECHNIQUE: Two X-ray images of the chest are obtained in AP projection, performed 5 minutes apart. COMPARISON: Prior CT of the chest on 06/18/2025. FINDINGS: The initial radiograph demonstrated the endotracheal tube positioned within the right main bronchus. A follow-up radiograph obtained 5 minutes later shows the distal tip of the tube approximately 2.5 cm above the nile, which is acceptable; however, further withdrawal by an additional 1.5 cm is recommended for optimal positioning. Pulmonary Parenchyma: Mildly prominent vascular markings reflecting congestion (slightly increased). Obliteration of the left costophrenic recess suggests mild pleural effusion (mildly increased). No evidence of consolidation, collapse, or focal opacities. Heart and Mediastinum: Cardiomegaly is noted. Although comparison with the prior CT is limited, comparison with the radiograph dated 03/17/2025 demonstrates a progressive increase in the size of the cardiac silhouette, which may be secondary to pericardial effusion. Clinical correlation is recommended. No mediastinal widening or masses. No hilar or mediastinal lymphadenopathy. Bony Thorax: The bony thorax appears intact without fractures or deformities. Soft Tissues: Soft tissues overlying the chest wall are unremarkable. Overlying monitoring leads are seen. IMPRESSION: 1. The initial radiograph demonstrated the endotracheal tube positioned within the right main bronchus. A follow-up radiograph obtained 5 minutes later shows the distal tip of the tube approximately 2.5 cm above the nile, which is acceptable; however, further withdrawal by an additional 1.5 cm is recommended for optimal positioning. 2. Mildly prominent vascular markings reflecting congestion (slightly increased). 3. Obliteration of the left costophrenic recess suggests mild pleural effusion (mildly increased). 4. Cardiomegaly is noted. Although comparison with the prior CT is limited, comparison with the radiograph dated 03/17/2025 demonstrates a progressive increase in the size of the cardiac silhouette, which may be secondary to pericardial effusion. 5. Clinical correlation is recommended. Electronically signed by Berny Blair 09-02-2025 01:29 AM I & O Totals 24 Hours 08/31/25 09/01/25 09/02/25 06:59 06:59 06:59 Intake Total 410 / 410 Output Total 200 / 200 Balance 210 / 210 Cumulative 09/01/25 14:57 thru 09/01/25 22:47 Intake Total 410 Output Total 200 Balance 210 RT Ventilator Mngmt (Last Documented) Ventilator Ordered Settings Ventilator Support Mode Assist Control 09/01/25 23:36 Respiratory Rate 25 09/01/25 23:36 Ventilator Tidal Volume 350 09/01/25 23:36 Setting Minute Ventilation 18 09/01/25 23:36 Positive End Expiratory 5 09/01/25 23:36 Pressure Fraction of Inspired Oxygen 100 09/01/25 23:36 Ventilator - PT Measurements Respiratory Rate 25 Exhaled Tidal Volume 363 Minute Ventilation 18 Patient Measurements Comment pt ext. 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 Coding Level of Care Code 26725 CRITICAL CARE 1ST 30-74M Diagnoses Cardiorenal syndrome I13.10 Ventricular tachycardia I47.20 Cardiac arrest I46.9 Thrombocytopenia D69.6 DAVID (acute kidney injury) N17.9 Acute hyponatremia E87.1 Acute hyperkalemia E87.5 Pulmonary hypertension I27.20 Hypothermia T68.XXXA
[2025-09-02 04:12] VITALS: BP 132/84; PULSE 84
[2025-09-02] MEDS ORDERED: INSULIN ASPART PER UNIT CHARGE SC SCH (07:30)
[2025-09-02] MEDS ORDERED: FINASTERIDE 5 MG TAB PO SCH (09:00)
[2025-09-02] MEDS ORDERED: SODIUM ZIRCONIUM CYCLOSILICATE 10 GM PACKET PO SCH (11:00)
--- NOTE | 2025-09-03 12:43 | Electrocardiogram Report ---
Test Reason : Blood Pressure : */* mmHG Vent. Rate : 105 BPM Atrial Rate : 182 BPM P-R Int : * ms QRS Dur : 162 ms QT Int : 484 ms P-R-T Axes : * 125 -55 degrees QTcB Int : 639 ms Wide QRS tachycardia Non-specific intra-ventricular conduction block Lateral infarct , age undetermined Abnormal ECG When compared with ECG of 01-Sep-2025 15:08, Significant changes have occurred Confirmed by aMrshall Tee ([id number]) on 09/03/2025 12:43:09 PM Referred By: REFERRED SELF Confirmed By: Marshall Tee
[2025-09-03 13:14] LABS: Hepatitis A Antibody IgM NON-REACTIVE (NON-REACTIVE); Hepatitis B Core Antibody IgM NON-REACTIVE (NON-REACTIVE)
== END 2025-09-02 04:12 | disposition expired ==
LOC: ED 14:57 → 4W 17:46 → 2E 21:49 → 1E 23:33